=== PATIENT | female | born 1950 | race Two or more races ===

== ENCOUNTER 2025-06-15 20:01 | Inpatient (IN) | payer MEDICARE ==
[~2025-06-15] VITALS: Ht 157.5 cm; Wt 56.7 kg
[2025-06-15 21:06] LABS: PLATELET COUNT (AUTO) 328 K/uL (150-450); RED BLOOD CELL COUNT(AUTO) 3.89 MIL/uL (4.0-5.2); RED CELL DISTRIBUTION WIDTH 14.0 % (11.5-15.0); WHITE BLOOD COUNT (AUTO) 7.3 K/uL (4.3-11.0)
[2025-06-15 21:24] LABS: CALCIUM, SERUM 8.9 mg/dL (8.5-10.1); CREATININE 0.8 mg/dL (0.6-1.3); SODIUM SERUM 142 mmol/L (136-145); UREA NITROGEN, BLOOD 20 mg/dL (7-18)
[2025-06-15] MEDS ORDERED: QUET400T PO (21:33)
[2025-06-15 21:44] LABS: ALCOHOL, BLOOD < 3 mg/dL (0-10); ASPARTATE AMINOTRANSFERASE 29 U/L (15-37); TOTAL PROTEIN, SERUM 7.1 g/dL (6.4-8.2)
[2025-06-15 21:52] LABS: APPEARANCE,URINE SLIGHTLY CLOUDY (CLEAR); BLOOD, URINE NEGATIVE Ery/uL (NEGATIVE); LEUKOCYTE ESTERASE ,URINE NEGATIVE (NEGATIVE); NITRITE, URINE NEGATIVE (NEGATIVE); UGLUCOSE NEGATIVE (NEGATIVE)
[2025-06-15 22:05] LABS: AMPHETAMINE, URINE NEGATIVE (NEGATIVE); BARBITURATE, URINE NEGATIVE (NEGATIVE); CANNABINOID, URINE NEGATIVE (NEGATIVE); COCCAINE, URINE NEGATIVE (NEGATIVE); OPIATE, URINE NEGATIVE (NEGATIVE)
[2025-06-15 22:11] LABS: BENZODIAZEPINE, URINE POSITIVE (NEGATIVE)
[2025-06-15 22:22] LABS: ADD URINE CULTURE YES; SQUAMOUS EPITHELIAL CELL,UR Few /HPF (None Seen); URINE AMORPHOUS PHOSPHATES Many /HPF (None Seen)
[2025-06-16] MEDS: PANTOPRAZOLE 40 MG TABLET.DR PO ONE (01:00)
[2025-06-16] MEDS ORDERED: QUETIAPINE FUMARATE 25 MG TABLET PO PRN (02:00)
[2025-06-16] MEDS ORDERED: MAG HYDROX/AL HYDROX/SIMETH 30 ML UDC PO PRN (02:00)
[2025-06-16] MEDS ORDERED: MAGNESIUM HYDROXIDE 30 ML UDC PO PRN (02:00)
[2025-06-16] MEDS: BLOOD SUGAR DIAGNOSTIC 1 EACH STRIP IN ONE (02:02)
[2025-06-16] MEDS: ZOLPIDEM TARTRATE 5 MG TABLET PO PRN ×2 (02:05→23:22)
[2025-06-16 03:00] VITALS: BP 154/89; TEMP 98.2; O2SAT 100
[2025-06-16] MEDS: LEVOTHYROXINE SODIUM 88 MCG TABLET PO SCH (07:34)
[2025-06-16 08:00] VITALS: BP 145/97; TEMP 98.1; O2SAT 97
[2025-06-16] MEDS ORDERED: MULT-1168 PO (12:40)
[2025-06-16] MEDS ORDERED: CALC-105 PO (12:40)
[2025-06-16] MEDS ORDERED: CALC-1198 PO (12:40)
[2025-06-16] MEDS ORDERED: ROSU5TAB PO (12:40)
[2025-06-16] MEDS ORDERED: ALPR1TAB7 PO (12:40)
[2025-06-16] MEDS ORDERED: PROP20TA7 PO (12:40)
[2025-06-16] MEDS ORDERED: LEVO88TA5 PO (12:40)
[2025-06-16] MEDS ORDERED: DIVA250T PO (12:40)
[2025-06-16] MEDS ORDERED: DONE10TA44 PO (12:40)
[2025-06-16] MEDS: DIVALPROEX SODIUM 125 MG TABLET.DR PO SCH (15:00)
[2025-06-16 16:00] VITALS: BP 130/80; TEMP 98.2; O2SAT 95
[2025-06-16] MEDS: ACETAMINOPHEN 325 MG TABLET PO PRN (20:01)
[2025-06-16 20:54] VITALS: BP 147/97; TEMP 98.1; O2SAT 97
[2025-06-16] MEDS: DONEPEZIL 5 MG TABLET PO SCH (21:43)
[2025-06-16] MEDS: ATORVASTATIN 10 MG TABLET PO SCH (21:43)
[2025-06-17] MEDS: LEVOTHYROXINE SODIUM 100 MCG TABLET PO SCH (06:35)
[2025-06-17 07:26] LABS: CREATININE 1.0 mg/dL (0.6-1.3)
[2025-06-17 07:30] LABS: ASPARTATE AMINOTRANSFERASE 23.0 U/L (15-37); CALCIUM, SERUM 9.0 mg/dL (8.5-10.1); CREATININE 1.0 mg/dL (0.6-1.3); LDL 91 mg/dL (0-99); SODIUM SERUM 142.0 mmol/L (136-145); TOTAL PROTEIN, SERUM 7.5 g/dL (6.4-8.2); UREA NITROGEN, BLOOD 13.0 mg/dL (7-18)
[2025-06-17 08:08] VITALS: BP 134/96; TEMP 97.8; O2SAT 94
[2025-06-17] MEDS: DIVALPROEX SODIUM 125 MG TABLET.DR PO SCH (13:15)
[2025-06-17 16:06] VITALS: BP 140/89; TEMP 97.7; O2SAT 99
[2025-06-17 20:00] VITALS: BP 135/88; TEMP 97.9; O2SAT 99
[2025-06-18 08:00] VITALS: BP 113/82; TEMP 97.9; O2SAT 100
[2025-06-18 16:00] VITALS: BP 130/75; TEMP 98.8; O2SAT 99
[2025-06-18 20:20] VITALS: BP 115/60; TEMP 97.7; O2SAT 96
[2025-06-19 08:00] VITALS: BP 115/62; TEMP 98.6; O2SAT 98
[2025-06-19 16:00] VITALS: BP 108/78; TEMP 98.2; O2SAT 100
[2025-06-19 21:23] VITALS: BP 137/91; TEMP 98.3; O2SAT 99
[2025-06-20] MEDS ORDERED: diphenhydrAMINE HCL ELIX 25 MG/10 ML UDC PO PRN (05:35)
[2025-06-20 08:00] VITALS: BP 131/77; TEMP 97.7; O2SAT 98
[2025-06-20 16:00] VITALS: BP 131/76; TEMP 98.6; O2SAT 100
[2025-06-21 08:00] VITALS: BP 140/99; TEMP 97.8; O2SAT 99
[2025-06-21 16:00] VITALS: BP 124/79; TEMP 98.6; O2SAT 98
[2025-06-21 19:44] VITALS: BP 134/90; TEMP 99; O2SAT 98
[2025-06-21] MEDS: DIVALPROEX SODIUM 125 MG TABLET.DR PO SCH (21:04)
[2025-06-22 08:00] VITALS: BP 138/80; TEMP 98.1; O2SAT 97
[2025-06-22 16:00] VITALS: BP 116/70; TEMP 98.6; O2SAT 96
[2025-06-22 19:52] VITALS: BP 129/79; TEMP 98.4; O2SAT 97
[2025-06-23] MEDS: DIVALPROEX SODIUM 125 MG TABLET.DR PO SCH (14:27)
[2025-06-23] MEDS: OLANZAPINE 10 MG VIAL IM STA (14:50)
[2025-06-23 16:00] VITALS: BP 123/77; TEMP 98.2; O2SAT 97
[2025-06-23 19:53] VITALS: BP 133/77; TEMP 98.8; O2SAT 98
[2025-06-24 08:00] VITALS: BP 126/98; TEMP 98.1; O2SAT 98
[2025-06-24 16:00] VITALS: BP 111/63; TEMP 98.6; O2SAT 98
[2025-06-24 20:02] VITALS: BP 104/67; TEMP 98.4; O2SAT 98
[2025-06-25 08:00] VITALS: BP 124/84; TEMP 98.8; O2SAT 98
[2025-06-25 20:50] VITALS: BP 132/88; TEMP 98.8; O2SAT 97
[2025-06-25] MEDS ORDERED: DIVALPROEX SODIUM 125 MG CAP.SPRINK ONE (21:23)
[2025-06-26 08:00] VITALS: BP 139/87; TEMP 97.8; O2SAT 98
[2025-06-26 16:00] VITALS: BP 111/68; TEMP 98.1; O2SAT 98
[2025-06-26 20:00] VITALS: BP 118/74; TEMP 98.1; O2SAT 98
[2025-06-27 08:00] VITALS: BP 130/71; TEMP 97.9; O2SAT 98
[2025-06-27 08:16] VITALS: BP 130/71; TEMP 97.9; O2SAT 98
[2025-06-27 16:00] VITALS: BP 133/83; TEMP 97.3; O2SAT 97
[2025-06-27 20:14] VITALS: BP 140/78; TEMP 97.9; O2SAT 98
[2025-06-28 08:00] VITALS: BP 141/94; TEMP 98.6; O2SAT 99
[2025-06-28 16:00] VITALS: BP 128/88; TEMP 98.4; O2SAT 100
[2025-06-28 20:00] VITALS: BP 141/89; TEMP 97.7; O2SAT 99
[2025-06-29 08:26] VITALS: BP 136/83; TEMP 98; O2SAT 99
[2025-06-29 16:11] VITALS: BP 147/81; TEMP 97.8; O2SAT 100
[2025-06-29 21:08] VITALS: BP 140/82; TEMP 97.8; O2SAT 99
[2025-06-30 08:00] VITALS: BP 132/63; TEMP 97.8; O2SAT 97
== END 2025-06-30 13:00 | disposition home or self-care (01) | DRG 885 ==
LOC: ER 20:16 → GPS 06-16 01:14
PROVIDERS: ADMIT Psychiatry & Neurology Psychiatry; ATTEND Nurse Practitioner Acute Care
DX: F31.2 Bipolar disorder, current episode manic severe with psychotic features (principal); F03.92 Unspecified dementia, unspecified severity, with psychotic disturbance; F03.93 Unspecified dementia, unspecified severity, with mood disturbance; F03.94 Unspecified dementia, unspecified severity, with anxiety; E11.9 Type 2 diabetes mellitus without complications; E78.5 Hyperlipidemia, unspecified; F31.9 Bipolar disorder, unspecified; R79.89 Other specified abnormal findings of blood chemistry; E03.9 Hypothyroidism, unspecified; I10 Essential (primary) hypertension; Z79.899 Other long term (current) drug therapy; Z88.8 Allergy status to other drugs, medicaments and biological substances; Z91.411 Personal history of adult psychological abuse; Z73.6 Limitation of activities due to disability; F41.9 Anxiety disorder, unspecified; F29 Unspecified psychosis not due to a substance or known physiological condition
CPT/HCPCS: 36415; 80048-TC; 80053-TC; 80061-TC; 80076-TC; 80164-TC; 81001; 82565-TC; 82962-TC; 84439-TC; 84443-TC; 84480; 84481; 85025-TC; 87081-TC; 87086-TC; G0480; J3490; Q0163